=== PATIENT | male | born 1935 | race Caucasian/White ===

== ENCOUNTER → 2016-12-28 | Outpatient (CLI) | payer MEDICARE, BC ==
[~2016-12-28] MED LIST: ASPIRIN81 M2 PO; DILTIAZEM 24HR180 MG PO; MOTION RELIEF25 MG PO; NORCO1 TAB 10/3 PO; PREDNISONE10 MG PO; SIMVASTATIN40 MG PO
--- NOTE | ~2016-12-28 | PFT ---
[id number] [facility] [address] [place], [place] [address] [id number] O MR#: [id number] NAME: KARELY PÉREZ ROOM: SEX: Rona STUDY DATE/TIME: 01/01/2017 : 1935 AGE: 81 STUDY DESCRIPTION: Attending Physician: Aviva Alexander M.D. Referring Physician: Aviva Alexander M.D. Primary Care Physician: Annalisa Poe M.D. PULMONARY DIAGNOSTIC REPORT EXAM Pulmonary function test. FINDINGS Spirometry is essentially normal. There is no significant response to bronchodilators. FEV1 is 2.98 liters, 90% of predicted. Flow volume loop is unremarkable. Lung volumes reveal a total lung capacity of 86%, which is normal. Diffusion capacity is moderate to severely decreased at 45%. Isolated reduced diffusion capacity can be seen in emphysema, pulmonary vascular disease, early interstitial lung disease, etc. Clinical evaluation is needed. Dictated by... Waldo Riley TD: 01/01/2017 11:53 JOB #: [id number] CC: Aviva Alexander M.D. PULMONARY DIAGNOSTIC REPORT Page 1 of 1
== END | disposition home or self-care (01) ==
LOC: CRC 13:07
DX: J20.9 Acute bronchitis, unspecified (principal)
CPT/HCPCS: 94060; 94726; 94729